=== PATIENT | male | born 1965 | race Caucasian/White ===

== ENCOUNTER 2017-09-16 11:54 | Outpatient (CLI) | payer MEDICAID ==
[~2017-09-16] VITALS: Ht 185.4 cm; Wt 118.2 kg
--- NOTE | ~2017-09-16 | HEMODYNAMI ---
PATIENT:QUANG FELICIANO MEDICAL RECORD: [id number] : 63 LOCATION:D.CAT ADMISSION DATE: 09/16/17 Generatedon:09/16/201715:45 Patient name: QUANG FELICIANO Patient #: [id number] SSN: : Date of study: 09/16/2017 Page: Of Hemodynamic Procedure Report Patient Data Patient Demographics Procedure consent was obtained First Name: QUANG Gender: Male Last Name: BRADEN Suffix: Jr Huizar Initial: KATHLEEN : 1965 Patient #: [id number] Age: 52 year(s) Race: Unknown Additional ID: [id number] Contact details [address]: [address] [place] [address] [address] State: [place] City: [facility] Zip code: [address] Past Medical History Allergies: No known allergies Admission Admission Data Admission Date: 09/16/2017 Admission Time: 11:54 Admit Source: Other Lab Results Lab Result Date: 09/16/2017 Lab Result Time: 0:00 Biochemistry Name Units Result Min Max BUN mg/dl 19 --(----)*- 7 18 Creatinine mg/dl 1.3 --(---*)-- 0.6 1.3 CBC Name Units Result Min Max Hemoglobin g/dl 14 --(*---)-- 13.5 17.5 Procedure Procedure Types Cath Procedure Diagnostic Procedure LHC LHC w/Coronaries Miscellaneous Procedures Moderate Sedation up to 15 minutes Procedure Description Procedure Date Procedure Date: 09/16/2017 Procedure Start Time: 15:32 Procedure End Time: 15:45 Procedure Staff Name Function Agustin Mccullough MD Performing Physician Alden Thornton RT Scrub Dayan Ortega RN Nurse Sanjuana Conde RN Nurse Queenie Soto RT Monitor Raj Julien RT Monitor Procedure Data Cath Procedure Fluoroscopy Diagnostic fluoroscopy Total fluoroscopy Time: 2.3 time: 2.3 min min Diagnostic fluoroscopy Total fluoroscopy dose: 654 dose: 654 mGy mGy Contrast Material Contrast Material Type Amount (ml) Isovue 300 63 Entry Location Entry Primary Successful Side Size Upsize Upsize Entry Closure Keller ccessful Closure Location (Fr) 1 (Fr) 2 (Fr) Remarks Device Remarks Radial Mechanical artery Compression Estimated blood loss: 5 ml Diagnostic catheters Device Type Used For End Catheter Placement Diagnostic Terumo 5Fr Procedure [place] 110cm catheter Procedure Complications No complications Procedure Medications Medication Administration Route Dosage Oxygen NC 2 l/min Lidocaine 2% added to field 20 Heparin Flush Bag added to field 2 bags (1000units/500ml NS) 0.9% NaCl I.V. 100 ml/hr Zofran I.V. 4 mg Versed I.V. 1 mg Fentanyl I.V. 25 mcg Versed I.V. 1 mg Fentanyl I.V. 50 mcg Fentanyl I.V. 25 mcg Radial Cocktail added to field 1 syringe (Verapomil 2mg/Nitro 400mcg/Heparin 1500units) Hemodynamics Rest HGB: 14 (g/dl) Heart Rate: 55 (bpm) Pressure Samples Time Site Value (mmHg) Purpose Heart Use Rate(bpm) 15:39 LV 155/-3,9 EDP 68 Snapshots Pre Cath Intra NCS Post Cath Vital Signs Time Heart Resp SPO2 etCO2 NIBP (mmHg) Rhythm Pain Sedation Rate (ipm) (%) (mmHg) Status Level (bpm) 15:20:04 60 20 99 25 137/94(107) NSR 0 (11) 10(A) , No pain 15:24:50 53 23 98 34.1 137/86(109) NSR 0 (11) 10(A) , No pain 15:29:37 56 15 100 23.4 136/86(101) NSR 0 (11) 10(A) , No pain 15:34:24 68 21 98 33.3 108/66(83) NSR 0 (11) 10(A) , No pain 15:39:07 66 15 96 11.3 123/66(96) NSR 0 (11) 10(A) , No pain 15:43:51 59 16 97 15.9 128/79(91) NSR 0 (11) 10(A) , No pain Medications Time Medication Route Dose Verified Delivered Reason Notes Effectiveness by by 15:20:01 Oxygen NC 2 l/min Agustin Hanley used for [facility] Orte[facility] last turner 15:20:09 Lidocaine 2% added 20ml Agustin Velez for local to vial [facility] anesthetic field MD WARD 15:20:16 Heparin Flush added 2 bags Agustin Velez used for Bag to [facility] procedure (1000units/500ml field MD WARD NS) 15:20:25 0.9% NaCl I.V. 100 Agustin Hanely Per ml/hr [facility] Shail[facility] Ortega RN physician 15:23:33 Zofran I.V. 4 mg Agustin Hanley Per pt states [facility]ail[facility] Ortega RN physician n\v with sedation medications 15:25:29 Versed I.V. 1 mg Agustin Wei for Poneto Elton RN sedation 15:25:51 Fentanyl I.V. 25 mcg Agustin Velasquezfany for Poneto Elton RN sedation 15:28:44 Versed I.V. 1 mg Agustin Leie for Poneto Shannon RN sedation 15:29:01 Fentanyl I.V. 50 mcg Agustin Hanley for Poneto Ortega RN sedation 15:31:38 Fentanyl I.V. 25 mcg Agustin Hanley for Poneto Ortega RN sedation 15:34:11 Radial Cocktail added 1 Agustin Velez used for (Verapomil to syringe [facility] procedure 2mg/Nitro field MD WARD 400mcg/Heparin 1500units) Procedure Log Time Note 15:04:10 Informed consent obtained and on chart 15:04:16 Admit Source: Other 15:04:47 Diagnostic Cath status Elective 15:04:49 Raj CUEVAS(R) sent for patient. Start room use. 15:04:50 Time tracking: Regular hours 15:04:54 Plan of Care:Hemodynamics will remain stable., Cardiac rhythm will remain stable., Comfort level will be maintained., Respiratory function will remain adequate., Patient/ family verbilizes understanding of procedure., Procedure tolerated without complication., Recovers from procedure without complications.. 15:05:12 H&P Date Dictated: 09/11/2017 Within 30 days and on chart., H&P Addendum completed by physician on day of procedure. (MUST COMPLETE FOR ALL OUTPATIENTS). 15:08:07 Lab Result : BUN 19 mg/dl 15:08:07 Lab Result : Creatinine 1.3 mg/dl 15:08:08 Lab Result : Hemoglobin 14 g/dl 15:08:12 Lab results completed and on chart. 15:13:06 Patient received from Pre/Post Procedure Room to CCL 1 Alert and oriented. Tansferred to table in Supine position. 15:13:07 Warm blankets applied, and hema hugger turned on for patient comfort. 15:13:11 Correct patient and procedure confirmed by team. 15:13:12 ECG and BP/O2 sat monitors applied to patient. 15:19:10 Vital chart was started 15:20:01 Oxygen 2 l/min NC was administered by Dayan Ortega RN; used for procedure; 15:20:09 Lidocaine 2% 20ml vial added to field was administered by Agustin Mccullough MD; for local anesthetic; 15:20:16 Heparin Flush Bag (1000units/500ml NS) 2 bags added to field was administered by Agustin Mccullough MD; used for procedure; 15:20:25 0.9% NaCl 100 ml/hr I.V. was administered by Dayan Ortega RN; Per physician; 15:22:37 Baseline sample Acquired. 15:22:44 Rhythm: sinus rhythm 15:22:45 Full Disclosure recording started 15:22:47 Pre-procedure instructions explained to patient. 15:22:48 Pre-op teaching completed and patient verbalized understanding. 15:22:50 Family in patients room. 15:22:51 Patient NPO since Midnight. 15:23:00 Patient allergic to No known allergies 15:23:32 Is patient on blood thinner?No 15:23:33 Zofran 4 mg I.V. was administered by Dayan Ortega RN; Per physician; pt states n\v with sedation medications 15:23:33 Patient diabetic? No. 15:23:42 Previous problem with sedation/anesthesia? Yes NAUSEA 15:23:44 Snore? Yes 15:23:45 Sleep apnea? No 15:23:46 Deviated septum? No 15:23:47 Opens mouth fully? Yes 15:23:47 Sticks out tongue? Yes 15:23:51 Airway obstruction? No ? 15:23:54 Dentures? No ? 15:23:57 Modified Manjinder's test Ulnar < 7 seconds 15:24:00 Patient pain scale 0/10 ?. 15:24:08 IV patent on arrival in left antecubital with 0.9% NaCl at [facility]. 15:24:14 Right Radial & Right Groin area was prepped with chlora-prep and draped in sterile fashion 15:24:15 Alarms reviewed by R. N. 15:24: Sharps counted by scrub and verified by R.N. 15:24:17 --------ALL STOP TIME OUT------ 15:24:17 Final Timeout: patient, procedure, and site verified with staff and physician. All members of the team are in agreement. 15:24:19 Right Radial & Right Groin site verified by team. 15:24:23 Physical assessment completed. ASA score P 2 - A patient with mild systemic disease as per Agustin Mccullough MD. 15:24:26 Sedation plan: IV Moderate Sedation Versed, Fentanyl 15:25:29 Versed 1 mg I.V. was administered by Sanjuana Conde RN; for sedation; 15::51 Fentanyl 25 mcg I.V. was administered by Sanjuana Conde RN; for sedation; 15::44 Versed 1 mg I.V. was administered by Dayan Ortega RN; for sedation; 15:29:01 Fentanyl 50 mcg I.V. was administered by Dayan Ortega RN; for sedation; 15:31:38 Fentanyl 25 mcg I.V. was administered by Dayan Ortega RN; for sedation; 15:31:54 Use device set Radial Dx 15:31:55 Acist Syringe opened to sterile field. 15:31:56 Acist Manifold opened to sterile field. 15:31:57 Acist Hand Control opened to sterile field. 15:31:58 MBrace Wrist Support opened to sterile field. 15:31:59 Tegaderm 4 x 4 opened to sterile field. 15:32:00 Medline Cath Pack opened to sterile field. 15:32:00 Bag Decanter opened to sterile field. 15:32:01 Terumo 6Fr Slender Glidesheath opened to sterile field. 15:32:01 [place] 260cm J .035 wire opened to sterile field. 15:32:03 Procedure started. 15:32:09 Local anesthetic to right radial artery with Lidocaine 2% by Agustin Mccullough MD.INITIAL ACCESS ONLY 15:33:46 Zero performed for pressure channel P1 15:33:57 A Diagnostic Terumo 5Fr [place] 110cm catheter was advanced over the wire and used for Procedure. 15:34:11 Radial Cocktail (Verapomil 2mg/Nitro 400mcg/Heparin 1500units) 1 syringe added to field was administered by Agustin Mccullough MD; used for procedure; 15:34:42 LCA angiography performed. 15:36:28 RCA angiography performed. 15:37:43 Injector settings: Ml/sec: 7, Volume: 15, 15:37:46 LV hemodynamics recorded. 15:37:47 LV gram done using JIMENEZ 15:39:31 EF : 55 % 15:39:54 Terumo TR Band Large opened to sterile field. 15:39:58 Catheter removed. 15:40:23 Sheath removed intact; hemostasis achieved with Mechanical Compression to the Radial artery. 15:40:23 A sheath was inserted into the Radial artery 15:40:37 Procedure ended.(Physican Out) 15:40:54 Fluoroscopy time 02.30 minutes. 15:40:59 Fluoroscopy dose: 654 mGy 15:40:59 Flurop Dose total: 654 15:41:05 Contrast amount:Isovue 300 63ml. 15:41:07 Sharps counted by scrub and verified by R.N. 15:41:34 TR band inflated with 8cc of air. 15:41:40 Post-procedure physical assessment completed. ASA score P 2 - A patient with mild systemic disease as per Agustin Mccullough MD. 15:41:43 Post procedure rhythm: unchanged. 15:41:45 Estimated blood loss: 5 ml 15:41:47 Post procedure instruction explained to patient.Patient verbalizes understanding. 15:41:47 Patient needs reinforcement of post procedure teaching. 15:41:57 Procedure type changed to Cath procedure, Diagnostic procedure, LHC, LHC w/Coronaries, Miscellaneous Procedures, Moderate Sedation up to 15 minutes 15:42:24 Procedure and supply charges have been captured, reviewed, submitted and are correct. 15:42:27 Procedure Complication : No complications 15:44:56 Vital chart was stopped 15:44:57 See physician's report for complete and final results. 15:45:15 Report given to Pre/Post Procedure Room. 15:45:19 Patient transfered to Pre/Post Procedure Room with Bed. 15:45:21 Procedure ended. 15:45:21 Full Disclosure recording stopped 15:45:30 End room use (Document Last) Device Usage Item Name Manufacture Quantity Catalog Hospital Part Current Minimal Lot# / Number Charge Number Stock Stock Serial# Code Acist Acist 1 22128 [id number] 140697 [id number] 20 Syringe [employer] Acist Acist 1 14989 721137 357140 227527 5 Manifold [employer] Acist Hand Acist 1 76007 161384 777040 704701 5 Control [employer] MBrace Advanced 1 140-0250-00 420996 04124 647451 5 Wrist Vascular Support Dynamics Tegaderm 4 3M 1 1626W 072322 821771 833843 5 x 4 Medline Cardinal 1 [id number] 247297 96637 986825 5 Cath Pack Health Bag Microtek 1 2002S 739823 38550 984663 5 [employer] Terumo 6Fr Terumo 1 [id number] 163446 638909 486022 [address] [place] 1 289234 003851 896755 065756 30 260cm J .035 wire Diagnostic Terumo 1 40-3617 618403 165223 960594 5 Terumo 5Fr [place] 110cm catheter Terumo TR Terumo 1 [id number] 717839 954683 963675 40 Band Large Signature Audit Mcconnell Stage Time Signature Unsigned Intra-Procedure 09/16/2017 Queenie Soto 3:45:48 PM RT(R) Signatures Monitor : Queenie Soto Signature : RT Date : Time : Monitor : Raj Julien RT Signature : Date : Time : [place] [id number] [place] [address]
[2017-09-16] MEDS ORDERED: AZOR 5-40 MG TA1 TAB PO (12:09)
[2017-09-16] MEDS ORDERED: HYDROCHLOROTHIA25 MG PO (12:10)
[2017-09-16] MEDS ORDERED: BAYER CHEWABLE81 MG PO (12:10)
[2017-09-16 12:13] VITALS: BP 140/87; Ht 185.4 cm; Wt 118.2 kg
[2017-09-16 12:31] LABS: BASOPHILS 0.4 % (0-2); EOSINOPHILS 1.9 % (0-7); HEMATOCRIT 42.6 % (42.0-54.0); IMMATURE GRANULOCYTES 0.3 % (0-5); LYMPHOCYTES 17.1 % (15-50); MCHC 32.9 g/dL (31.0-37.0); MCV 88.2 fL (80.0-100.0); MEAN PLATELET VOLUME 10.6 fL (7.4-10.4); MONOCYTES 6.7 % (2-11); NEUTROPHILS 73.6 % (40-80); PLATELET COUNT 220 10x3/uL (130-400); RBC 4.83 10x6/uL (4.20-6.10); RDW 15.3 % (11.5-14.5); WBC 7.3 10x3/uL (4.8-10.8)
[2017-09-16 13:21] LABS: ANION GAP 13.7 mmol/L (8-16); CALCIUM 9.3 mg/dL (8.5-10.1); CARBON DIOXIDE 27.2 mmol/L (21.0-32.0); CREATININE - SERUM 1.3 mg/dL (0.6-1.3); POTASSIUM - SERUM 4.9 mmol/L (3.5-5.1)
--- NOTE | 2017-09-16 16:47 | NUR ---
1500 RESTING WITH EYES CLOSED. ALL VITALS WNL. R WRIST TR BAND C/D/I W NO HEMATOMA OR BLEEDING. JANI AT BEDSIDE.
--- NOTE | 2017-09-16 16:55 | NUR ---
HOB ELEVATED, EATING TURKEY SANDWICH. ALL VITALS WNL. R WRIST TR BAND C/D/I.
--- NOTE | 2017-09-16 17:34 | NUR ---
1715 PIV REMOVED FROM LEFT HAND WITH BANDAID APPLIED. 2CC AIR REMOVED FROM R WRIST TR BAND. 1730 UP TO BEDSIDE TO DRESS WITH ASSIST FROM . 1745 TR BAND WEANED COMPLETELY, TEGADERM AND COTTON BALL APPLIED TO R WRIST. D/C INSTRUCTIONS DISCUSSED WITH PATIENT AND AT BEDSIDE. WHEELED OUT VIA WHEELCHAIR.
--- NOTE | 2017-09-19 13:50 | OP ---
PATIENT NAME: QUANG FELICIANO MEDICAL RECORD: [id number] :63 LOCATION:D.CAT ADMISSION DATE: SURGEON: HILLARY SHAW MD DATE OF OPERATION: 09/16/2017 PROCEDURE: Left heart catheterization, selective coronary angiography, right radial approach. CATHETERS: A 5-Kiswahili sheath, 5/4 left and right Ariadne, 5/4 pig. The procedure was well tolerated. The patient returned to [facility]. Sheath was removed. TR band was placed. FINDINGS: Left ventriculography in 30-degree JIMENEZ view: Normal wall motion. Normal systolic function. CORONARY ANATOMY. LEFT MAIN: Left main is free of disease. LAD: Free of disease in the diagonal system. CIRCUMFLEX: Free of disease in the marginal system. RIGHT CORONARY ARTERY: Dominant artery, gives rise to PDA, free of disease. IMPRESSION: Normal systolic function. Normal coronary anatomy. TRANSINT:[id number] Voice Confirmation ID: [id number] DOCUMENT ID: [id number] HILLARY SHAW MD at 1350 CC: [id number] DICTATION DATE: 09/16/17 1546 LAUNDRY WORKER: 09/16/17 1749 DEP CLI 09/16/17 [facility] [address] [place] [address]
== END 2017-09-16 17:49 | disposition home or self-care (01) ==
LOC: D.CATH 11:54
PROVIDERS: Internal Medicine Interventional Cardiology
DX: I20.9 Angina pectoris, unspecified (principal); I10 Essential (primary) hypertension; R94.30 Abnormal result of cardiovascular function study, unspecified; Z01.812 Encounter for preprocedural laboratory examination